=== PATIENT | male | born 1980 | race African-American/Black ===

== ENCOUNTER → 2017-09-02 | Outpatient (CLI) | payer MEDICAID ==
[~2017-09-02] VITALS: Ht 185.4 cm; Wt 88.9 kg
[~2017-09-02] MED LIST: cloNIDine HCL 0.1 MG TAB ONE
== END | disposition home or self-care (01) ==
LOC: Rad HDHVI 13:33
PROVIDERS: ATTEND Internal Medicine Cardiovascular Disease
DX: I08.8 Other rheumatic multiple valve diseases (principal); I10 Essential (primary) hypertension; H35.00 Unspecified background retinopathy; Z83.79 Family history of other diseases of the digestive system
CPT/HCPCS: 78452; 93017; 93306; 96374; A9500

== ENCOUNTER 2019-03-14 11:16 | Emergency (ER) | payer OTHER, MEDICAID ==
[~2019-03-14] VITALS: Ht 188 cm; Wt 93.9 kg
[2019-03-14 11:22] VITALS: BP 184/100
== END 2019-03-14 12:11 | disposition left against medical advice (07) ==
LOC: ER 11:16
DX: L02.419 Cutaneous abscess of limb, unspecified (principal); Z53.21 Procedure and treatment not carried out due to patient leaving prior to being seen by health care provider